=== PATIENT | female | born 1960 | race Caucasian/White ===

== ENCOUNTER → 2020-05-27 11:08 | Outpatient (CLI) | payer OTHER, SELFPAY ==
--- NOTE | ~2020-05-27 | XR_ITS ---
EXAMINATION: XR chest 2V 05/27/2020 11:33 INDICATION: Personal history of nicotine dependence. PROCEDURE: 2 view chest COMPARISON: No prior studies for comparison. FINDINGS: The lungs are clear. The cardiomediastinal silhouette is within normal limits. There are no pleural effusions. There is no pneumothorax suspected. IMPRESSION: 1: NO ACUTE CARDIOPULMONARY DISEASE. Reviewed, dictated and finalized at location A.
== END ==
PROVIDERS: PCP Family Medicine; Visit Provider Family Medicine
DX: Z87.891 Personal history of nicotine dependence (principal)
CPT/HCPCS: 71046

== ENCOUNTER 2023-04-05 17:33 | Emergency (ER) | payer OTHER, MEDICARE, SELFPAY ==
--- NOTE | 2023-04-05 17:37 | ED.FEMALEGU ---
HPI - Female Genitourinary General Chief complaint: Urogenital-Female Stated complaint: Crab treatment not working Time Seen by Provider: 04/05/23 17:37 Source: patient and RN notes reviewed History of Present Illness HPI Narrative: Patient is a 63-year-old female who presents to urgent care with complaints of possible lice. Patient has been being treated by Dr. Ospina since March 15 for lice. Patient was placed on permethrin and also went to a treatment facility in [place] who went through her hair with a fine tooth comb and stated they did not see any nits or evidence of lice. Patient states that she still believes she has it and has been seeing ?little brown bugs?. No other acute complaints. No acute distress noted. Patient aware of the plan of care. Some parts of this dictation were generated by voice recognition software and may contain typographical and/or grammatical inaccuracies. Related Data Home Medications Medication Instructions Recorded Confirmed ascorbic acid (vitamin C) 1,000 mg 1 gm PO DAILY 05/19/20 04/05/23 tablet aspirin 81 mg tablet,delayed 81 mg PO DAILY 05/19/20 04/05/23 release (Adult Low Dose Aspirin) cholecalciferol (vitamin D3) 125 125 mcg PO DAILY 05/19/20 04/05/23 mcg (5,000 unit) capsule magnesium 250 mg tablet 500 mg PO DAILY 05/19/20 04/05/23 multivitamin-ferrous 1 tablet PO DAILY 05/19/20 04/05/23 fumarate-folic acid 18 mg-400 mcg tablet (Centrum Women) omega-3 fatty acids 1,250 mg 1,250 mg PO DAILY 05/19/20 04/05/23 capsule Allergies Allergy/AdvReac Type Severity Reaction Status Date / Time No Known Allergies Allergy Verified 04/05/23 17:53 Review of Systems Review of Systems: CONSTITUTIONAL: Denies fever, chills, or sweats. EYES: Denies visual changes, redness, or discharge. ENT: Denies rhinorrhea, congestion, sore throat, or otalgia. CARDIOVASCULAR: Denies chest pain, palpitations, or edema. RESPIRATORY: Denies cough or dyspnea. GASTROINTESTINAL: Denies abdominal pain, nausea, vomiting, or diarrhea. GENITOURINARY: Denies dysuria or hematuria. SKIN: Reports of possibility of lice MUSCULOSKELETAL: Denies back pain, joint pain, or myalgia. NEUROLOGIC: Denies headache, numbness, or weakness. All other systems reviewed are negative, except as documented in HPI. [facility] Past Medical History Medical History (Updated 04/05/23 @ 18:10 by SEPIDEH Ho) HTN (hypertension) UTI (urinary tract infection) Dx on 28 October 2019 Surgical History Surgical History (Updated 05/15/22 @ 12:58 by Ignacio Ospina MD) H/O oophorectomy History of appendectomy History of cholecystectomy History of tonsillectomy Family History Family History (Reviewed 05/27/21 @ 15:44 by Adore Cervantes [facility]) Father Cancer Grandparent Cerebrovascular accident Grandparent Heart attack Social History Social History (Updated 05/27/21 @ 15:45 by Adore Cervantes [facility]) Smoking status: Never smoker Additional smoking assessment comments: Smoked when [age] y/o Alcohol intake: current Drinks per week: 10 Substance use type: does not use Gender identity (if verbalized by the patient): Female Comments At the time of my signature, I reviewed and agree with the nursing past medical, surgical, social, and family history. There is no relevant family history pertinent to the patient complaint. Exam Narrative: GENERAL: This is a well-nourished, well-developed patient, in no apparent distress. HEAD: normocephalic, atraumatic. EYES: PERRL. Sclera clear/white. Vision is grossly intact. EARS: External ears normal NOSE: External nose normal with no obvious nasal discharge, nares without redness, no rhinorrhea. THROAT: Mucous membranes moist NECK: Neck supple SKIN: No notable nits or active lice seen in the scalp. Warm, intact with no suspicious lesions or rash, good texture and turgor. NEURO: awake, alert, and oriented to person, place and time. There were
[2023-04-05 17:40] VITALS: BP 178/99; PULSE 70; RESP 20; TEMP 36.6; O2SAT 98
== END 2023-04-05 18:13 | disposition home or self-care (01) ==
PROVIDERS: Emergency Provider Nurse Practitioner Family; PCP Family Medicine
DX: B85.1 Pediculosis due to Pediculus humanus corporis (principal); I10 Essential (primary) hypertension; Z79.82 Long term (current) use of aspirin
CPT/HCPCS: 99213; G0463

== ENCOUNTER 2023-04-26 07:19 | Outpatient (CLI) | payer OTHER, MEDICARE, SELFPAY ==
[2023-04-26 19:29] LABS: Hemoglobin A1C 5.9 % (<5.7)
== END 2023-04-26 07:20 | disposition home or self-care (01) ==
LOC: ANHBWCLAB 07:23
PROVIDERS: PCP Family Medicine; Visit Provider Family Medicine
DX: R73.09 Other abnormal glucose (principal)
CPT/HCPCS: 36415; 83036

== ENCOUNTER 2023-10-01 07:59 | Outpatient (CLI) | payer OTHER, MEDICARE, SELFPAY ==
[2023-10-01 19:25] LABS: Basophils Absolute Auto 0.1 K/mm3 (0.0-0.1); Basophils Percent Auto 0.9 % (0.2-1.2); Eosinophils Absolute Auto 0.5 K/mm3 (0-0.3); Eosinophils Percent Auto 8.6 % (0-4.4); Hematocrit 42.1 % (37.0-47.0); Lymphocytes Absolute Auto 2.22 K/mm3 (0.9-3.2); Lymphocytes Percent Auto 41.7 % (18.3-44.2); Mean Corpuscular HGB Conc 33.3 g/dl (32-36); Mean Corpuscular Hemoglobin 32.1 pg (26-34); Mean Corpuscular Volume 96.6 fl (80-100); Mean Platelet Volume 9.9 fl (7.4-10.4); Monocytes Absolute Auto 0.5 K/mm3 (0.1-0.6); Monocytes Percent Auto 8.5 % (2.6-8.5); Neutrophils Absolute Auto 2.1 K/mm3 (1.3-6.7); Neutrophils Percent Auto 40.3 % (45.5-73.1); Platelet Count Result 255 k/mm3 (150-375); Red Blood Count 4.36 M/mm3 (4.2-5.4); Red Cell Distribution Width 13.6 % (11.5-14.5); White Blood Count 5.3 K/mm3 (4.5-10.0)
[2023-10-01 20:11] LABS: Alanine Aminotransferase 131 U/L (6-35); Albumin Level 4.6 g/dL (3.5-5.1); Alkaline Phosphatase 72 U/L (38-126); Anion Gap 9 mmol/L (8-16); Aspartate Amino Transferase 116 U/L (14-36); Bilirubin,Total 0.7 mg/dL (0.2-1.3); Blood Urea Nitrogen 15 mg/dL (7-17); Calcium 9.5 mg/dL (8.4-10.2); Carbon Dioxide 26 mmol/L (22-30); Chloride 103 mmol/L (98-107); Cholesterol 222 mg/dL (0-200); Estimated Glomerular Filt Rate 56; Glucose 119 mg/dL (65-110); HDL Direct 40 mg/dL; Potassium 3.7 mmol/L (3.4-5.0); Sodium 138 mmol/L (137-145); Triglycerides 265 mg/dL (<150)
[2023-10-01 20:21] LABS: LDL Cholesterol Direct 112 mg/dL
[2023-10-01 22:18] LABS: Hemoglobin A1C 5.9 % (<5.7)
== END 2023-10-01 08:00 | disposition home or self-care (01) ==
PROVIDERS: PCP Family Medicine; Visit Provider Family Medicine
DX: Z00.00 Encounter for general adult medical examination without abnormal findings (principal); R73.03 Prediabetes; I10 Essential (primary) hypertension; E66.9 Obesity, unspecified
CPT/HCPCS: 36415; 80053; 80061; 83036; 85025

== ENCOUNTER 2023-11-06 07:01 | Outpatient (CLI) | payer OTHER, MEDICARE, SELFPAY ==
[2023-11-06 20:04] LABS: Hepatitis B Surface Antigen Negative (Negative)
[2023-11-06 20:10] LABS: HAV RESULT Negative (Negative); Hepatitis B Core IgM Result Negative (Negative)
[2023-11-06 20:21] LABS: Hepatitis C Virus Antibody Negative (Negative)
== END 2023-11-06 07:02 | disposition home or self-care (01) ==
PROVIDERS: PCP Family Medicine; Visit Provider Family Medicine
DX: R74.01 Elevation of levels of liver transaminase levels (principal); R74.8 Abnormal levels of other serum enzymes
CPT/HCPCS: 36415; 80074

== ENCOUNTER → 2023-11-12 08:57 | Outpatient (CLI) | payer OTHER, SELFPAY ==
--- NOTE | ~2023-11-12 | US_ITS ---
EXAMINATION: US abdomen limited DATE: 11/12/2023 09:34 INDICATION: Elevated liver TECHNIQUE: Multiple grayscale and Doppler ultrasound images of the abdomen were obtained. COMPARISON: CT, 11/13/2019 FINDINGS: The head, body, and tail of the pancreas are normal. The liver demonstrates increased echog enicity, heterogenous echotexture, and decreased through transmission. No surface nodularity. Normal hepatopetal flow in the main portal vein. Changes of cholecystectomy are noted. The normal common bella e duct measures 8 mm. There is an approximately 6.6 cm mass of the right kidney upper pole demonstrat ing mixed sonographic features, consistent with the angiomyolipoma described on the comparison CT. IMPRESSION: 1. Diffuse hepatic steatosis. 2. 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 Reviewed, dictated and finalized at location B. OGRAPH PRINTER
== END ==
PROVIDERS: PCP Family Medicine; Visit Provider Family Medicine
DX: R74.8 Abnormal levels of other serum enzymes (principal); K76.0 Fatty (change of) liver, not elsewhere classified; D17.71 Benign lipomatous neoplasm of kidney
CPT/HCPCS: 76705

== ENCOUNTER 2024-01-09 09:27 | Emergency (ER) | payer OTHER, SELFPAY ==
[2024-01-09 09:51] VITALS: BP 122/87; PULSE 79; RESP 16; TEMP 36.9; O2SAT 100
--- NOTE | 2024-01-09 10:38 | ED.URI ---
HPI - URI/Sore Throat General Chief Complaint: Upper Respiratory Infection Stated Complaint: SORE THROAT/COUGH/SNEEZING Time Seen by Provider: 01/09/24 10:29 Source: patient and RN notes reviewed Mode of arrival: ambulatory Limitations: no limitations History of Present Illness HPI Narrative: Patient presents today complaining of 4 day history of cough, body aches, sneezing, congestion, sore throat, and fever up to 99.8. Denies shortness of breath or known sick contacts. She has tried airborne and NyQuil without relief. No history of asthma or COPD. Related Data Home Medications Medication Instructions Recorded Confirmed ascorbic acid (vitamin C) 1,000 mg 1 gm PO DAILY 05/19/20 01/09/24 tablet aspirin 81 mg tablet,delayed 81 mg PO DAILY 05/19/20 01/09/24 release (Adult Low Dose Aspirin) cholecalciferol (vitamin D3) 125 125 mcg PO DAILY 05/19/20 01/09/24 mcg (5,000 unit) capsule magnesium 250 mg tablet 500 mg PO DAILY 05/19/20 01/09/24 multivitamin-ferrous 1 tablet PO DAILY 05/19/20 01/09/24 fumarate-folic acid 18 mg-400 mcg tablet (Centrum Women) omega-3 fatty acids 1,250 mg 1,250 mg PO DAILY 05/19/20 01/09/24 capsule Allergies Allergy/AdvReac Type Severity Reaction Status Date / Time No Known Allergies Allergy Verified 01/09/24 10:07 Review of Systems Review of Systems: CONSTITUTIONAL: Denies chills, or sweats.+ body aches, fever EYES: Denies visual changes, redness, or discharge. ENT: Denies rhinorrhea, or otalgia.+ congestion, sore throat CARDIOVASCULAR: Denies chest pain, palpitations, or edema. RESPIRATORY: Denies dyspnea.+ cough GASTROINTESTINAL: Denies abdominal pain, nausea, vomiting, or diarrhea. GENITOURINARY: Denies dysuria or hematuria. SKIN: Denies rash, itching, or wounds. MUSCULOSKELETAL: Denies back pain, joint pain, or myalgia. NEUROLOGIC: Denies headache, numbness, tingling, or weakness. PSYCH: Denies depression or anxiety. [facility] Past Medical History Medical History Encounter for administration of vaccine HTN (hypertension) UTI (urinary tract infection) Dx on 28 October 2019 Surgical History Surgical History H/O oophorectomy History of appendectomy History of cholecystectomy History of tonsillectomy Family History Family History Father Cancer Grandparent Cerebrovascular accident Grandparent Heart attack Social History Social History Smoking status: Never smoker Additional smoking assessment comments: Smoked when [age] y/o Alcohol intake: current Drinks per week: 10 Substance use type: does not use Lack of Transportation: No Lack of Food: Never True Concerned About Future Housing: No Difficulty Paying Gas/Electric Bills: No Difficulty Paying for Meds: No Currently Unemployed: No Education: High School Diploma/GED Difficulty w/ Childcare or Family Care: No Gender identity (if verbalized by the patient): Female Comments At time of signature, I have reviewed and agree with nursing past medical, surgical, social and family history unless otherwise noted. Please see nursing chart for further information. There is no relevant family history pertinent to the presenting complaint Exam Narrative: GENERAL: Well-appearing, well-nourished, and in no acute distress. HEAD: Normocephalic, atraumatic. EYES: EOMI. No redness or drainage. Conjunctivae normal. ENT: Mucous membranes pink and moist. Nares congested. No rhinorrhea. TMs normal bilaterally. Throat normal. Uvula midline. NECK: Normal AROM. Supple. No lymphadenopathy. CHEST: No respiratory distress. Clear to auscultation. HEART: Regular rate and rhythm. No murmur appreciated. EXTREMITIES: Normal range of motion. No edema. S
== END 2024-01-09 11:07 | disposition home or self-care (01) ==
PROVIDERS: Emergency Provider Nurse Practitioner; PCP Family Medicine
DX: B34.9 Viral infection, unspecified (principal); Z20.822 Contact with and (suspected) exposure to COVID-19; I10 Essential (primary) hypertension; Z79.82 Long term (current) use of aspirin; Z87.891 Personal history of nicotine dependence
CPT/HCPCS: 87081; 87426; 87804; 87880; 99213; G0463

== ENCOUNTER 2024-05-19 06:47 | Outpatient (CLI) | payer OTHER, SELFPAY ==
[2024-05-19 18:55] LABS: Basophils Percent Auto 0.6 % (0.2-1.2); Eosinophils Absolute Auto 0.2 K/mm3 (0-0.3); Eosinophils Percent Auto 3.8 % (0-4.4); Hematocrit 42.3 % (37.0-47.0); Hemoglobin 13.6 g/dL (12.0-15.0); Lymphocytes Absolute Auto 2.14 K/mm3 (0.9-3.2); Mean Corpuscular HGB Conc 32.2 g/dl (32-36); Mean Corpuscular Hemoglobin 31.5 pg (26-34); Mean Corpuscular Volume 97.9 fl (80-100); Mean Platelet Volume 9.5 fl (7.4-10.4); Monocytes Absolute Auto 0.4 K/mm3 (0.1-0.6); Monocytes Percent Auto 8.6 % (2.6-8.5); Platelet Count Result 258 k/mm3 (150-375); Red Blood Count 4.32 M/mm3 (4.2-5.4); Red Cell Distribution Width 12.9 % (11.5-14.5); White Blood Count 4.8 K/mm3 (4.5-10.0)
[2024-05-19 19:48] LABS: Hemoglobin A1C 5.4 % (<5.7)
[2024-05-19 20:17] LABS: Alanine Aminotransferase 37 U/L (6-35); Albumin Level 4.5 g/dL (3.5-5.1); Alkaline Phosphatase 80 U/L (38-126); Anion Gap 8 mmol/L (4-12); Aspartate Amino Transferase 58 U/L (14-36); Bilirubin,Total 0.6 mg/dL (0.2-1.3); Blood Urea Nitrogen 21 mg/dL (7-17); Calcium 9.4 mg/dL (8.4-10.2); Carbon Dioxide 30 mmol/L (22-30); Chloride 102 mmol/L (98-107); Cholesterol 193 mg/dL (0-200); Estimated Glomerular Filt Rate 45; Glucose 88 mg/dL (65-110); HDL Direct 36 mg/dL; Potassium 3.6 mmol/L (3.4-5.0); Sodium 140 mmol/L (137-145); Triglycerides 201 mg/dL (<150)
[2024-05-19 20:43] LABS: LDL Cholesterol Direct 109 mg/dL
[2024-05-19 21:25] LABS: Folic Acid > 20.0 ng/mL (2.76->20)
== END 2024-05-19 06:48 | disposition home or self-care (01) ==
PROVIDERS: PCP Family Medicine
DX: E56.9 Vitamin deficiency, unspecified (principal); E34.9 Endocrine disorder, unspecified; E66.3 Overweight
CPT/HCPCS: 36415; 80053; 80061; 82607; 82746; 83036; 84443; 85025

== ENCOUNTER 2024-07-17 06:38 | Outpatient (CLI) | payer OTHER, SELFPAY ==
[2024-07-17 19:50] LABS: Alanine Aminotransferase 29 U/L (6-35); Albumin Level 4.5 g/dL (3.5-5.1); Alkaline Phosphatase 70 U/L (38-126); Anion Gap 10 mmol/L (4-12); Aspartate Amino Transferase 80 U/L (14-36); Bilirubin,Total 0.5 mg/dL (0.2-1.3); Blood Urea Nitrogen 26 mg/dL (7-17); Calcium 9.4 mg/dL (8.4-10.2); Carbon Dioxide 27 mmol/L (22-30); Chloride 99 mmol/L (98-107); Estimated Glomerular Filt Rate 55; Glucose 98 mg/dL (65-110); Potassium 3.9 mmol/L (3.4-5.0); Sodium 136 mmol/L (137-145)
[2024-07-17 20:41] LABS: Hemoglobin A1C 5.7 % (<5.7)
[2024-07-23 13:24] LABS: ALT 21 U/L (6-29); Alpha-2-Macroglobulin 199 mg/dL (106-279); Apolipoprotein A1 135 mg/dL (101-198); Fibrosis Score 0.23; Fibrosis Stage F0-F1; GGT 39 U/L (3-65); Haptoglobin 119 mg/dL (43-212); Necroinflammat Act Grade A0; Reference ID 5077341; Total Bilirubin 0.3 mg/dL (0.2-1.2)
== END 2024-07-17 06:39 | disposition home or self-care (01) ==
LOC: ANHBWCLAB 06:39
PROVIDERS: PCP Family Medicine; Visit Provider Family Medicine
DX: E66.9 Obesity, unspecified (principal); R73.03 Prediabetes; R73.9 Hyperglycemia, unspecified; R94.4 Abnormal results of kidney function studies; R74.8 Abnormal levels of other serum enzymes
CPT/HCPCS: 36415; 80048; 80076; 81596; 83036

== ENCOUNTER 2024-10-09 12:54 | Outpatient (CLI) | payer OTHER, SELFPAY ==
--- NOTE | ~2024-10-09 | DEXA_ITS ---
Bone Density Report Name: EUN HOANG Age: 64 Sex: Female Ethnicity: White Date of : 1960 Indication: postmenopausal; screening for osteoporosis; parental hip fracture; Referring Provider: BETH FOSTER Study: Bone densitometry was performed. Exam Date: October 09, 2024 Accession number: [id number] Bone Density: Region BMD T-score Z-score Classification AP Spine(L1-L4) 1.105 0.5 2.4 Normal Femoral Neck (Left) 0.755 -0.8 0.8 Normal Total Hip (Left) 1.015 0.6 1.9 Normal Femoral Neck (Right) 0.618 -2.1 -0.5 Osteopenia Total Hip (Right) 0.913 -0.2 1.1 Normal Total Hip Mean 0.964 0.2 1.5 Normal World Health Organization criteria for BMD impression classify patients as: Normal (T-score at or above -1.0), Osteopenia (T-score between -1.0 and -2.5), or Osteoporosis (T-score at or below -2.5). 10-year Fracture Risk(1): Major Osteoporotic Fracture 19% Hip Fracture 2.3% Reported Risk Factors: [place] (), Neck BMD=0.618, BMI=30.6, parental fracture (1) FRAX(R) Version 3.08. Fracture probability calculated for an untreated patient. Fracture probability may be lower if the patient has received treatment. Clinical Information Provided by Patient: Parent has had a hip fracture Has used the following medications: Vitamin D Patient maximum height was 64 Menopause Age: 53 Onset of menses at age 13 Number of children 4 Impression: The patient has low bone mass, based on the Right Femoral Neck T-score. The patient has an estimated ten-year risk of hip fracture of 2.3% and an estimated ten-year risk of major fracture of 19%, based on the WHO FRAX algorithm. The patient has risk factors, including: parental hip fracture. Discussion: BONE DENSITY IS LOW AT ONE OR MORE SKELETAL SITES. This patient's lowest T-score is low at one or more skeletal sites. It meets the World Health Organization's (WHO) criteria for ?low bone mass? (T-score between -1.0 and -2.5). The patient's 10-year risk of fracture as calculated by FRAX is less than the threshold where pharmacological therapy is recommended by the National Osteoporosis Foundation (NOF). However, all treatment decisions require clinical judgment and consideration of individual patient factors, including patient preferences, comorbidities, previous drug use, risk factors not captured in the FRAX model (e.g., frailty, falls, vitamin D deficiency, increased bone turnover, interval significant decline in bone density) and possible under or overestimation of fracture risk by FRAX. The patient should follow a healthful lifestyle (good nutrition with adequate calcium and vitamin D, and appropriate weight-bearing exercise). Follow-Up: Consider repeating this study in 2 to 3 years to reassess this patient's status, or sooner if there is some new clinical indication. Reported by: BRITTANY on 10/09/2024 1:41:00 PM. Reviewed, dictated and finalized at location A. [facility]
== END 2024-10-09 12:55 | disposition home or self-care (01) ==
PROVIDERS: PCP Family Medicine; Visit Provider Family Medicine
DX: M85.851 Other specified disorders of bone density and structure, right thigh (principal); Z78.0 Asymptomatic menopausal state; Z82.62 Family history of osteoporosis
CPT/HCPCS: 77080

== ENCOUNTER 2024-10-20 07:25 | Outpatient (CLI) | payer OTHER, SELFPAY ==
[2024-10-20 18:57] LABS: Hematocrit 43.5 % (37.0-47.0); Hemoglobin 14.4 g/dL (12.0-15.0); Mean Corpuscular HGB Conc 33.1 g/dl (32-36); Mean Corpuscular Hemoglobin 30.6 pg (26-34); Mean Corpuscular Volume 92.4 fl (80-100); Mean Platelet Volume 9.5 fl (7.4-10.4); Platelet Count Result 286 k/mm3 (150-375); Red Blood Count 4.71 M/mm3 (4.2-5.4); White Blood Count 5.4 K/mm3 (4.5-10.0)
[2024-10-20 19:05] LABS: CRP < 0.5 mg/dL (<1.0)
[2024-10-20 19:11] LABS: Alanine Aminotransferase 30 U/L (6-35); Albumin Level 4.6 g/dL (3.5-5.1); Alkaline Phosphatase 74 U/L (38-126); Anion Gap 5 mmol/L (4-12); Aspartate Amino Transferase 54 U/L (14-36); Bilirubin,Total 0.7 mg/dL (0.2-1.3); Blood Urea Nitrogen 24 mg/dL (7-17); Calcium 9.8 mg/dL (8.4-10.2); Carbon Dioxide 33 mmol/L (22-30); Chloride 99 mmol/L (98-107); Estimated Glomerular Filt Rate 55; Glucose 90 mg/dL (65-110); Potassium 3.9 mmol/L (3.4-5.0); Sodium 137 mmol/L (137-145)
[2024-10-20 19:26] LABS: Erythrocyte Sedimentation Rate 16 mm/hr (0-20)
[2024-10-20 19:36] LABS: Hemoglobin A1C 5.5 % (<5.7)
[2024-10-21 17:13] LABS: ANA Cascade Screen NEGATIVE (NEGATIVE)
== END 2024-10-20 07:26 | disposition home or self-care (01) ==
LOC: ANHBWCLAB 07:26
PROVIDERS: PCP Family Medicine; Visit Provider Family Medicine
DX: R94.4 Abnormal results of kidney function studies (principal); Z00.00 Encounter for general adult medical examination without abnormal findings; R73.9 Hyperglycemia, unspecified; R74.8 Abnormal levels of other serum enzymes; R73.03 Prediabetes; E66.9 Obesity, unspecified; I10 Essential (primary) hypertension; M25.511 Pain in right shoulder; M25.512 Pain in left shoulder; M79.10 Myalgia, unspecified site
CPT/HCPCS: 36415; 80053; 83036; 85027; 85652; 86038; 86140; 86225; 86235; 86364

== ENCOUNTER 2024-10-27 15:39 | Outpatient (CLI) | payer OTHER, SELFPAY ==
--- NOTE | ~2024-10-27 | XR_ITS ---
Left Shoulder Technique: AP and scapular Y views were obtained. Clinical History: Pain Findings: No fracture or dislocation is seen. Osseous alignment is anatomic. The glenohumeral and acr omioclavicular joints demonstrate mild degenerative change. Soft tissues are unremarkable. Impression: Mild degenerative changes, as above. Reviewed, dictated and finalized at location . L STAMPER Impression: Mild degenerative changes, as above.
--- NOTE | ~2024-10-27 | XR_ITS ---
Right Shoulder Technique: AP and scapular Y views were obtained. Clinical History: Pain Findings: No fracture or dislocation is seen. Osseous alignment is anatomic. The glenohumeral and acr omioclavicular joints demonstrate moderate degenerative change. Probable loose bodies within the benigno ps tendon sheath. Impression: Moderate degenerative changes, as above. Probable loose bodies in the biceps tendon sheath. Reviewed, dictated and finalized at location . SERVICING SPECIALIST Impression: Moderate degenerative changes, as above. Probable loose bodies in the biceps tendon sheath.
== END 2024-10-27 15:40 | disposition home or self-care (01) ==
LOC: ANHBWCIMG 15:40
PROVIDERS: PCP Family Medicine; Visit Provider Family Medicine
DX: M19.012 Primary osteoarthritis, left shoulder (principal); M19.011 Primary osteoarthritis, right shoulder; M79.10 Myalgia, unspecified site; I10 Essential (primary) hypertension
CPT/HCPCS: 73030

== ENCOUNTER 2024-12-09 12:07 | Outpatient (CLI) | payer OTHER, SELFPAY ==
--- NOTE | ~2024-12-09 | MM_ITS ---
EXAMINATION: MM screening edi BI w meagan HISTORY: Screening mammogram TECHNIQUE: Craniocaudal and mediolateral oblique 3-D tomosynthesis images were obtained and synthetic 2-D images were generated. CAD analysis was submitted and interpreted. COMPARISON: No prior mammogram is available for comparison at this institution. BREAST PARENCHYMAL COMPOSITION:Not Dense. There are scattered areas of fibroglandular density. FINDINGS: There are several ovoid mass is at the upper, outer left breast, largest measuring 12 mm. N o mass lesion or distortion seen in the right breast. No suspicious microcalcification either breast. IMPRESSION: Upper, outer left breast masses. Spot compression views and ultrasound are recommended for further e valuation. BI-RADS Category 0: Incomplete: Needs additional imaging evaluation. Reviewed, dictated and finalized at [facility]. R SERVICE WORKER SPRING IMPRESSION: Upper, outer left breast masses. Spot compression views and ultrasound are rec ommended for further evaluation. BI-RADS Category 0: Incomplete: Needs additional imaging evaluation.
== END 2024-12-09 12:08 | disposition home or self-care (01) ==
PROVIDERS: PCP Family Medicine; Visit Provider Family Medicine
DX: Z12.31 Encounter for screening mammogram for malignant neoplasm of breast (principal); R92.8 Other abnormal and inconclusive findings on diagnostic imaging of breast
CPT/HCPCS: 77063; 77067

== ENCOUNTER 2024-12-31 09:54 | Outpatient (CLI) | payer OTHER, SELFPAY ==
--- NOTE | ~2024-12-31 | MMUS_ITS ---
EXAMINATION: MM diagnostic edi LT w meagan, US breast LT complete HISTORY: Palpable left breast lump TECHNIQUE: Additional 3-D tomosynthesis images of the breasts were performed and synthetic 2-D images were generated. CAD analysis was submitted and interpreted. High resolution complete left breast ult rasound was performed. COMPARISON: 12/09/2024 BREAST PARENCHYMAL COMPOSITION: Dense: The breasts are heterogeneously dense, which may obscure small masses FINDINGS: MAMMOGRAPHIC FINDINGS: There are multiple masses of the left breast which are partially obscured by fibroglandular tissue. T he largest mass measures approximately 1.3 cm in the upper outer quadrant of the left breast, middle third. There are no suspicious calcifications or architectural distortion. ULTRASOUND: Complete US of all 4 quadrants of the left breast/s and retroareolar region was reviewed. At 12:00, 1 cm from the nipple there is a 4 mm cyst. At 1:00, 2 cm from the nipple there is a 1.6 cm cyst, likel y corresponding to the dominant mass seen on mammogram. At 1:00, 3 cm from the nipple there is an 8 m m cyst. At 1:00, 3 cm from the nipple there is an round hypoechoic mass without posterior features or internal vascularity measuring 4 mm. At 3:00, 3 cm from the nipple there is an oval hypoechoic mass with internal echoes, no internal vascularity and no posterior features measuring 6 mm. At 7:00, 6 cm from the nipple there is 3 mm cyst. IMPRESSION: 1. Probable benign left breast masses. 2. Recommend 6 month follow-up diagnostic left mammogram and Limited left breast ultrasound. BI-RADS category 3, probably benign findings. Reviewed, dictated and finalized at location B. RRAL AND INFORMATION AIDE IMPRESSION: 1. Probable benign left breast masses. 2. Recommend 6 month follow-up diagnostic left mammogram and Limited left breas t ultrasound. BI-RADS category 3, probably benign findings.
== END 2024-12-31 09:55 | disposition home or self-care (01) ==
PROVIDERS: PCP Family Medicine; Visit Provider Family Medicine
DX: N63.20 Unspecified lump in the left breast, unspecified quadrant (principal)
CPT/HCPCS: 76641; 77061; 77065; G0279

== ENCOUNTER 2025-04-23 11:07 | Outpatient (CLI) | payer OTHER, SELFPAY ==
--- NOTE | ~2025-04-23 | US_ITS ---
Procedure: Duplex Doppler examination of the bilateral carotids. Indication: Family history of ischemic heart disease Technique: Real time, color-flow and pulse wave Doppler examination of the bilateral carotids was performed. Findings: Lowe scale ultrasonography of the right neck demonstrated no significant plaque. There was demonstrat ion of normal color-flow and Doppler waveforms within the right common, internal and external carotid arteries. The peak systolic velocities in the right common, internal and external carotid arteries w ere demonstrated to be 89 cm/sec, 74 cm/sec and 55 cm/sec respectively. The right ICA/CCA ratio was 0 .8.The proximal right internal carotid artery demonstrates 0% stenosis relative to the normal distal artery lumen diameter. Lowe scale sonography of the left neck demonstrated no significant plaque. There was demonstration of normal color-flow and wave forms within the left common, internal and external carotid arteries. The peak systolic velocities in the left common, internal and external carotid arteries were demonstrate d to be 84cm/sec, 67 cm/sec and 39 cm/sec respectively. The left ICA/CCA ratio was 0.8. The proximal left internal carotid artery demonstrates 0% stenosis relative to the normal distal artery lumen diam eter. There was antegrade flow demonstrated in the bilateral vertebral arteries. Impression: No hemodynamically significant stenosis of the bilateral internal carotid arteries. Antegrade flow in the bilateral vertebral arteries. Note: The methodology used is an indirect measurement validated against a direct method (such as the NASCET criteria) that compares diameters at the stenosis to the distal ICA. Reviewed, dictated and finalized at [facility]. Impression: No hemodynamically significant stenosis of the bilateral internal carotid arter ies. Antegrade flow in the bilateral vertebral arteries. Note: The methodology used is an indirect measurement validated against a direct meth od (such as the NASCET criteria) that compares diameters at the stenosis to the distal ICA.
--- OUTSIDE RECORDS SUMMARY | 2025-04-23 11:28 | XMS_ITS ---
Author Organization [facility] Address [address] [place] [id number] Care Team Providers Care Assembler Piano Name Role Phone NiloKindra Primary Care Provider [phone] Encounters Encounter Location Date Provider Diagnosis [address] [id number] 10/30/2024 Kindra Corcoran Dysplasia of cervix uteri, unspecified N87.9 and High grade squamous intraepithelial lesion on cytologic smear of cervix (HGSIL) R87.613 Assessments Encounter Date Diagnosis (ICD Code) Assessment Notes Treatment Notes Treatment Clinical Notes Section Notes 10/30/2024 Dysplasia of cervix uteri, unspecified (ICD-10 - N87.9) 10/30/2024 High grade squamous intraepithelial lesion on cytologic smear of cervix (HGSIL) (ICD-10 - R87.613) Plan Of Treatment No Information Progress Notes * Brannon ADAMSKeshiaOB:[birth year] (65 yo F)Acc No.[id number]:10/30/2024 Progress Note Patient: Kelsie Satrks Provider: Cam Corcoran M.D. :1960 A ge:64 Y S ex:Female Date:10/30/2024 Phone: [id number] Assessment: * Assessment: 1. D ysplasia of cervix uteri, unspecified - N87.9 2 . H igh grade squamous intraepithelial lesion on cytologic smear of cervix (HGSIL) - R87.613 * Electronic signature of Tiki Corcoran on 04/23/2025 at 11:28 AM CDT Sign off status: Pending * Provider: Cam Corcoran M.D. Date: 12/31/2023 Generated for Courtney paz/Vashti/Micahitting on: 0 04/23/2025 11:28 AM CDT
--- OUTSIDE RECORDS SUMMARY | 2025-04-23 11:28 | XMS_ITS ---
Author Organization [facility] Address [address], [place] [id number] Care Team Providers Care Nutritional Yeast Supervisor Name Role Phone Nilo Kindra Primary Care Provider Migration, Provider Unavailable Unavailable REASON FOR VISIT EMR-Angel Encounters Encounter Location Date Provider Diagnosis [facility] [address], [place] [id number] 02/21/2025 Prov ider Migration Plan Of Treatment No Information Progress Notes * Keara ADAMSOB:[birth year] (65 yo F)Acc No.[id number]:02/21/2025 Patient: Kelsie BROWN :1960 A ge:65 Y S ex:Female Phone: Address:[facility] [address], [place], [address] Subjective: * Chief Complaints: * E MR-Angel * * Date:
--- OUTSIDE RECORDS SUMMARY | 2025-04-23 11:28 | XMS_ITS | Clinical Summary ---
Author Organization [facility] Address [address] [place] [address] Phone Care Team Providers Care Information Technology Account Manager Name Role Phone Tracy Nelson MD Primary Care Provider [phone] Allergies No known active allergies Medications losartan (COZAAR) 100 mg tablet Take 100 mg by mouth. Active cholecalciferol , Vitamin D3, (VITAMIN D3) 1,000 unit Capsule Take by mouth daily. Pt unsure of dosage Active multivitamin (DAILY-ANNA) tablet Take 1 Tablet by mouth daily. Active Fish Oil-Mohawk-3 Fatty Acids 300-500 mg Capsule Take by mouth. PT UNSURE OF DOSAGE Active oxyCODONE-aceta minophen (PERCOCET) 5-325 mg tabletIndicatio ns:Retroperiton eal hemorrhage Take 1 Tablet by mouth every 4 hours as needed for moderate pain. Max Daily Amount: 6 Tablets 10 Tablet 11/05/2019 Active aspirin (ECOTRIN EC) 81 mg Tablet, Delayed Release (E.C.) Take 81 mg by mouth daily. Active hydroCHLOROthia zide (HYDRODIURIL) 12.5 mg tablet Take 25 mg by mouth daily. 02/03/2023 Active Active Problems Problem Noted Date Diagnosed Date Chest pain, rule out acute myocardial infarction 04/06/2023 Angiolipoma of right kidney 11/04/2019 Nausea & vomiting 11/04/2019 Benign hypertension 11/03/2019 Hyperlipidemia 11/03/2019 Resolved Problems Problem Noted Date Diagnosed Date Resolved Date Acute blood loss anemia 11/04/201910/28 Hematuria 11/04/2019 11/25/2019 Retroperitoneal hemorrhage 11/03/2019 1 Renal mass, right 11/03/2019 11/25/2019 Family History Medical History Relation Name Comments Healthy Brother Prostate Cancer Father Healthy Mother Healthy Sister Relation Name Status Comments Brother Father Mother Alive Sister Social History Tobacco Use Types Packs/Day Years Used Date Smoking Tobacco: Former Cigarettes 1 10 1 12/27/1978 - 10/26/1989 Smokeless Tobacco: Never Tobacco Cessation:Counseling Given: Yes Alcohol Use Standard Drinks/Week Comments Yes 1 (1 standard drink = 0.6 oz pur e alcohol) Glass of wine per night Feeling Safe Answer Date Recorded Within the last year, have y ou been afraid of your partner or ex-partner? Patient declined 11/03/2019 Within the last year, have y ou been humiliated or emotionally abused in other ways by your partner or ex-partner? Patient declined 11/03/2019 Within the last year, have y ou been kicked, hit, slapped, or otherwise physically hurt by your partner or ex-partner? Patient declined 11/03/2019 Within the last year, have y ou been raped or forced to have any kind of sexual activity by your partner or ex-partner? Patient declined 11/03/2019 Social Connections Answer Date Recorded In a typical week, how many times do you talk on the phone with family, friends, or neighbors? Patient declined 11/03/2019 How often do you get togethe r with friends or relatives? Patient declined 11/03/2019 How often do you attend worship or zoroastrianism serv ices? Patient declined 11/03/2019 Do you belong to any clubs o r organizations such as worship groups, unions, fraternal or athletic groups, or school groups? Patient declined 11/03/2019 How often do you attend meet ings of the clubs or organizations you belong to? Patient declined 11/03/2019 Are you , , di vorced, , never , or living with a partner? Patient declined 11/03/2019 Financial Resource Strain Answer Date R ecorded How hard is it for you to pa y for the very basics like food, housing, medical care, and heating? Patient declined 11/03/2019 Food Insecurity Answer Date Recorded Within the past 12 months, y ou worried that your food would run out before you got the money to buy more. Patient declined Within the past 12 months, t he food you bought just didn't last and you didn't have money to get more. Patient declined 07/2019 Transportation Needs Answer Date Record ed In the past 12 months, has l ack of transportation kept you from medical appointments or from getting medications? Patient declined 11/03/2019 In the past 12 months, has l ack of transportation kept you from meetings, work, or from getting things needed for daily living? Patient declined 11/03/2019 Feeling Safe Answer Date Recorded Are you in a relationship wi th someone who hurts you emotionally and/or physically? 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 Gender Identity Not on file Sexual Orientation Not on file Last Filed Vital Signs Vital Sign Reading Time Taken Comments Blood Pressure 169/100 04/07/2023 11:03 AM CDT Pulse 78 04/07/2023 11:03 AM CDT Temperature 36.7 C (98 F) 04/07/2023 11:03 AM CDT Respiratory Rate 16 04/07/2023 11:03 AM CDT Oxygen Saturation 100% 04/07/2023 11:03 AM CDT Inhaled Oxygen Concentration - - Weight 86.2 kg (190 lb) 04/06/2023 8:06 AM CDT Height 162.6 cm (5' 4) 04/06/2023 8:06 AM CDT Body Mass Index 32.61 04/06/2023 8:06 AM CDT Plan of Treatment Health Maintenance Due Date Last Done Comments BREAST CANCER SCREENING 1998 COLORECTAL SCREENING 2003 Colorectal Cancer Screening 2003 FIT-DNA Q 3 years 2003 FIT/FOBT Q 1 year 2003 Flex Sig/CT Colonography Q 5 years 2003 PNEUMOCOCCAL VACCINE 50+ YEARS (1 of 1 - PCV) 02/07/20 08 ZOSTER VACCINE (1 of 2) 02/07/2008 DTAP/TDAP/TD VACCINES (1 - Tdap) 10/24/2016 10/23/20 16 OSTEOPOROSIS SCREENING 2023 INFLUENZA VACCINE (#1) 2024 RSV VACCINE (60+ or ) (1 - 1-dose 75+ series) 2033 Insurance RX [employer] (INTERNAL) [facility] [employer] [place] [id number] MEDICARE PART A AND B Advance Directives For more information, please contact: [phone] * Default Full Code - Needs Discussion (Latest Code Status on File) Date Activated Date Inactivated Comments 04/07/2023 2:37 AM 04/07/2023 1:09 PM * Full Code Date Activated Date Inactivated Comments 11/03/2019 2:48 PM 11/05/2019 9:27 PM Care Teams Information Technology Account Manager Relationship Specialty Start Date End Date Tracy Nelson MD PCP - General Family Practice 10/21/18
--- OUTSIDE RECORDS SUMMARY | 2025-04-23 11:28 | XMS_ITS | Clinical Summary ---
Author Organization [facility] Address [address] [place] [address] Care Team Providers Care Billiard Player Name Role Phone Unavailable Primary Care Provider Unavailabl e Source Comments [facility],non-owned Affiliates and Associated Physician Practices is amultiple site organization consisting of ambulatory clinics and hospital sitesin [place], [place], [place] and [place]. This disclosure is being madepursuant to the Care Everywhere program and may not contain all information available regarding this patient. Last updated 18.[facility] Allergies No known active allergies Medications * Be aware that medications may not be up to date on this document. Alwaysverify current medications with the patient. 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 Gender Identity Not on file Sexual Orientation Not on file Last Filed Vital Signs Vital Sign Reading Time Taken Comments Blood Pressure 124/80 11/28/2019 12:42 PM AFFILIATE MARKETING SPECIALIST Pulse 67 11/28/2019 12:42 PM AFFILIATE MARKETING SPECIALIST Temperature 36.6 C (97.9 F) 11/28/2019 12:42 PM AFFILIATE MARKETING SPECIALIST Respiratory Rate 16 11/28/2019 12:42 PM AFFILIATE MARKETING SPECIALIST Oxygen Saturation 97% 11/28/2019 12:42 PM AFFILIATE MARKETING SPECIALIST Inhaled Oxygen Concentration - - Weight 77.1 kg (170 lb) 11/28/2019 12:42 PM AFFILIATE MARKETING SPECIALIST Height 162.6 cm (5' 4) 11/28/2019 12:42 PM AFFILIATE MARKETING SPECIALIST Body Mass Index 29.18 11/28/2019 12:42 PM AFFILIATE MARKETING SPECIALIST Plan of Treatment Health Maintenance Due Date Last Done Comments BONE DENSITY TESTING 1960 COLOGUARD (AGES 45-75) - COL ON CA SCREENING 1958 COLON MONITORING 1958 COLONOSCOPY - COLON CA SCREENING 1958 CT COLONOGRAPHY - COLON CA SCREENING 1958 Colorectal Cancer Screening 1958 FIT - COLON CA SCREENING 1958 FLEX SIG - COLON CA SCREENING 1958 LIPID TESTING 1958 MAMMOGRAM 1958 HEPATITIS C SCREENING 02/02/1976 DTAP/TDAP/TD VACCINES (1 - Tdap) 1977 PNEUMOCOCCAL VACCINE 50+ (1 of 1 - PCV) 02/07/2008 ZOSTER VACCINE (1 of 2) 02/07/2008 SCREENING FOR DIABETES 10/28/2019 COVID-19 VACCINE ( - 2023-2 5 season) 2024 DEPRESSION SCREENING 11/26/2024 INFLUENZA VACCINE (Season Ended) 2025 Respiratory Syncytial Virus (RSV) Vaccine Pt: or over 60 yrs (1 - 1-dose 75+ series) 2033 HEPATITIS B VACCINE Aged Out No longe r eligible based on patient's age to complete this topic HIB VACCINE Aged Out No longer eligi ble based on patient's age to complete this topic HPV VACCINE Aged Out No longer eligi ble based on patient's age to complete this topic MENINGOCOCCAL (Group B) VACC INE SHARED DECISION-MAKING Aged Out No longer eligibl e based on patient's age to complete this topic MENINGOCOCCAL GROUPS A/C/Y/W VACCINE Aged Out No longer eligible b ased on patient's age to complete this topic Insurance [employer]
--- OUTSIDE RECORDS SUMMARY | 2025-04-23 11:29 | XMS_ITS | Clinical Summary ---
Author Organization [facility] Address [address] [place] [address] Care Team Providers Care Carbonizer Name Role Phone Ignacio Ospina MD Primary Care Provider [phone] Allergies No known active allergies Medications losartan (COZAAR) 100 mg tablet Take 100 mg by mouth daily Active ibuprofen (ADVIL,MOTRIN) 200 mg tab/cap Take 400 mg by mouth every 6 (six) hours as needed for pain Active HYDROcodone-rehan taminophen (NORCO) 5-325 mg per tabletIndicatio ns:Pain Take 1 tablet by mouth every 6 (six) hours as needed for pain 20 tablet 2 Active Additional Information Patient not taking.Reported on 09/15/2022 hydroCHLOROthia zide (HYDRODIURIL) 12.5 mg tablet Take 12.5 mg by mouth daily 2 Active Active Problems Problem Noted Date Diagnosed Date Closed fracture of right distal radius 2 Overview (05/26/2022): Added automatically from request for surgery [id number] Angiolipoma of right kidney 11/04/2019 Nausea & vomiting 11/04/2019 Benign hypertension 11/03/2019 Hyperlipidemia 11/03/2019 Immunizations Immunization Administration Dates Next Due TD Preservative Free 10/23/2016 Surgical History Surgery Date Site/Laterality Comments APPENDECTOMY CHOLECYSTECTOMY HYSTERECTOMY FOOT SURGERY TONSILLECTOMY Medical History Medical History Date Comments Hypertension Motion sickness Family History Medical History Relation Name Comments Prostate cancer Father Cancer, pros min; Stroke Father Stroke; Relation Name Status Comments Father Social History Tobacco Use Types Packs/Day Years Used Date Smoking Tobacco: Former Smokeless Tobacco: Never Alcohol Use Standard Drinks/Week Comments Yes 0 (1 standard drink = 0.6 oz pur e alcohol) AUDIT-C Answer Date Recorded Q1: How often do you have a drink containing alcohol? 4 or more times a week 05/30/2022 Q2: How many drinks containi ng alcohol do you have on a typical day when you are drinking? 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 Gender Identity Not on file Sexual Orientation Not on file Obstetrics History Last Filed Vital Signs Vital Sign Reading Time Taken Comments Blood Pressure 140/90 05/30/2022 5:26 PM CDT Pulse 88 05/30/2022 5:26 PM CDT Temperature 36.2 C (97.2 F) 05/30/2022 5:26 PM CDT Respiratory Rate 16 05/30/2022 5:26 PM CDT Oxygen Saturation 100% 05/30/2022 5:26 PM CDT Inhaled Oxygen Concentration - - Weight 84.9 kg (187 lb 2.7 oz) 05/30/2022 12:25 PM CDT Height 162.6 cm (5' 4) 05/30/2022 12:25 PM CDT Body Mass Index 32.13 05/30/2022 12:25 PM CDT Plan of Treatment Health Maintenance Due Date Last Done Comments Breast Cancer Screening-Mammogram 1960 Colon Cancer Screening-Colonoscopy 1958 Depression Screening 1958 Fall Risk Assessment 1958 Hepatitis C Screening 1958 Osteoporosis Screening-Bone Density Scan 1958 Hepatitis B Screening 02/07/1976 Pneumococcal vaccine 65+ (1 of 1 - PCV) 02/07/2008 Zoster Vaccine (1 of 2) 02/07/2008 Well Visit 65+ 2023 Covid-19 Vaccine (4 - 2023-2 5 season) 2024 11/25/2021, 03/06/2021, 02/13/2021 Influenza Vaccine (Season Ended) 2025 09/21/2021, 09/06/2020, 08/24/2019, Additional history exists DTaP/Tdap/Td Vaccine (2 - Td or Tdap) 05/15/2032 05/15/2022, 10/23/2016 Medical Devices Implanted Type Area Student Life Coordinator Device Identifier Shelf Expiration Date Model / Serial / Lot [employer] 3 Hole Anatomic Graft Window Radius Right Wrist Volar Narrow [id number] - Sn/A - [id number] Implanted:Qty: 1 on 05/30/2022 by Isaías Perez MD at [facility] Right: Wrist [employer] [id number] / N/A / DRP 10 [employer] Screw Kreulock Compression Titanium 2.4x20mm [id number] - Sn/A - [id number] Implanted:Qty: 3 on 05/30/2022 by Isaías Perez MD at [facility] Right: Wrist [employer] [id number] 0 / N/A / [id number], [id number] [employer] Screw Kreulock Compression Titanium 2.4x18mm [id number] - Sn/A - [id number] Implanted:Qty: 3 on 05/30/2022 by Isaías Perez MD at [facility] Right: Wrist [employer] [id number] 8 / N/A / [id number] [employer] Screw Kreulock Compression Titanium 3.5x14mm [id number] - Sn/A - [id number] Implanted:Qty: 1 on 05/30/2022 by Isaías Perez MD at [facility] Right: Wrist [employer] [id number] / N/A / [id number] [employer] 3.5mm 10mm Low Profile Lock Screw Bone Titanium [id number]-10 - Sn/A - [id number] Implanted:Qty: 1 on 05/30/2022 by Isaías Perez MD at [facility] Right: Wrist [employer] [id number]-[id number]-10 / N/A / [id number] [employer] 2.4mm 18mm Variable Angle Lock Smooth Radius Cortical Distal [id number] - Sn/A - [id number] Implanted:Qty: 1 on 05/30/2022 by Isaías Perez MD at [facility] Right: Wrist [employer] [id number] 8 / N/A / [id number] Explanted Type Area Student Life Coordinator Device Identifier Shelf Expiration Date Model / Serial / Lot [employer] Screw Kreulock Compression Titanium 2.4x26mm [id number] - Sn/A - [id number] Explanted:Qty: 1 on 05/30/2022 at [facility] Right: Wrist [employer] [id number]- 26 / N/A / [id number] Insurance CHOICE PLUS CHOICE PLUS [facility] CHOICE PLUS Member Subscriber Plan / Payer (Ef fective 2021-Present) Name:Kelsie Adams Relation to Subscriber:Spouse Name:ETHAN ADAMS Date of :1958 Address: [address] [place] [address] Payer ID:[id number] (NAIC) Type:[facility] [facility] HMO/PPO Address: [place] [phone] Care Teams Carbonizer Relationship Specialty Start Date End Date Ignacio Ospina MD PCP - General 05/19/22
--- OUTSIDE RECORDS SUMMARY | 2025-04-23 11:29 | XMS_ITS ---
Author Organization [facility] Address [address] [place], [place] [id number] Care Team Providers Care Greenkeeper Name Role Phone Kindra Corcoran Primary Care Provider [phone] Migration, Provider Unavailable Unavailable REASON FOR VISIT EMR[facility] Medications Medication SIG (Take, Route, Frequency, Duration) Notes Start Date End Date Status predniSONE 20 MG Tablet Oral 10/01/2024 Active Losartan Potassium 100 MG Tablet Oral 10/01/2024 Active hydroCHLOROthiazide 25 MG Tablet Oral 10/01/2024 Active Semaglutide *Pick strength-form from [email or web address] for eRX* 10/01/2024 Active Social History Social History Additional Details Category Social Info Options Details Migrated Social History Migrated Social History Tobacco Years: Former smoker 10/01/2024 [facility]counters Encounter [facility] Date [facility] [address], [place] [id number] [facility] Prov ider Migration Plan Of Treatment No Information Progress Notes * Keara ADAMSOB:[birth year] (65 yo F)Acc No.[id number]:02/22/2025 Patient: Brannon BROWNine :1960 A ge:65 Y S ex:Female Phone: Address:[facility] [address] [facility], [place], [address] Subjective: * Chief Complaints: * E MR-Angel * Pony Edger History: M igrated GynHistory M igrated GYNHistory:: Abnormal Pap: Y Modified Date:10/01/2024,Age at First Child: 18 Modified Date:10/01/2024,Age at Menarche: 13 Modified Date:10/01/2024,Colposcopy: 09/05/2017 Modified Date:10/01/2024,Current Control Method: Menopause Modified Date:10/01/2024,HPV Vaccine: N Modified Date:10/01/2024,Hormone Replacement Therapy: N Modified Date:10/01/2024,If Post Menopausal, Age at Menopause: 53 Modified Date:10/01/2024,STIs/STDs: N Modified Date:10/01/2024,Sexual Problems: N Modified Date:10/01/2024,Sexually Active: Y Modified Date:10/01/2024 . * Surgical History: Appendectomy Ectopic Laparoscopy Other Tonsillectomy * Family History: M other: Osteoporosis . * Social History: M igrated Social History: M igrated Social History: Tobacco Years: Former smoker 10/01/2024. * Medications: T akinghydroCHLOROthiazide 25 MG Tablet Oral Losartan Potassium 100 MG Tablet Oral predniSONE 20 MG Tablet Oral Semaglutide , Notes to Pharmacist: *[facility]*Taking hydroCHLOROthiazide 25 MG Tablet Oral Taking Losartan Potassium 100 MG Tablet Oral Taking predniSONE 20 MG Tablet Oral Taking Semaglutide , Notes to Pharmacist: *Pick strength-form from [employer] for eRX* * * Date:
--- OUTSIDE RECORDS SUMMARY | 2025-04-23 11:29 | XMS_ITS | Referral Summary ---
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 Gender Identity Not on file Sexual Orientation [...] 05/30/2022 12:25 PM CDT Plan of Treatment Not on file Medical Devices Implanted Type Area Computer Systems Auditor Device Identifier Shelf Expiration Date Model / Serial / Lot [employer] 3 Hole Anatomic Graft Window Radius Right Wrist Volar Narrow [id number] - Sn/A - [id number] Implanted:Qty: 1 on 05/30/2022 by Isaías Perez MD at [facility] Right: Wrist [employer] [id number] / N/A / DRP 10 [employer] Screw Kreulock Compression Titanium 2.4x20mm [id number] - Sn/A - [id number] Implanted:Qty: 3 on 05/30/2022 by Isaías Perez MD at [facility] Right: Wrist [employer] [id number] 0 / N/A / [id number], [id number] [employer] Screw Kreulock Compression Titanium 2.4x18mm [id number]-[id number] - Sn/A - [id number] Implanted:Qty: 3 on 05/30/2022 by Isaías Perez MD at [facility] Right: Wrist [employer] [id number] 8 / N/A / [id number] [employer] Screw Kreulock Compression Titanium 3.5x14mm [id number] - Sn/A - [id number] Implanted:Qty: 1 on 05/30/2022 by Isaías Perez MD at [facility] Right: Wrist [employer] [id number] / N/A / [id number] [employer] 3.5mm 10mm Low Profile Lock Screw Bone Titanium Ar-8935l-10 - Sn/A - [id number] Implanted:Qty: 1 on 05/30/2022 by Isaías Perez MD at [facility] Right: Wrist [employer] AR-8935L-10 / N/A / [id number] [employer] 2.4mm 18mm Variable Angle Lock Smooth Radius Cortical Distal [id number] - Sn/A - [id number] Implanted:Qty: 1 on 05/30/2022 by Isaías Perez MD at [facility] Right: Wrist [employer] [id number] 8 / N/A / [id number] Explanted Type Area Computer Systems Auditor Device Identifier Shelf Expiration Date Model / Serial / Lot [employer] Screw Kreulock Compression Titanium 2.4x26mm [id number] - Sn/A - [id number] Explanted:Qty: 1 on 05/30/2022 at [facility] Right: Wrist [employer] [id number]- 26 / N/A / [id number] Insurance [facility] CHOICE PLUS [facility] H[facility]/PPO Address: [address] [address] [place] [address] [facility] CHOICE PLUS [facility] H[facility]/PPO Address: [address] [place] [address] [facility] CHOICE PLUS [facility] H[facility]/PPO Address: [address] [address] [place] [address] Care Teams Alterations Expert Relationship Specialty Start Date End Date Ignacio Ospina MD PCP - General 05/19/22
--- OUTSIDE RECORDS SUMMARY | 2025-04-23 11:29 | XMS_ITS | Patient Health Record ---
Author Organization [facility] Address [address], [place] [id number] Care Team Providers [facility] [employer] Name Role Phone Nilo Kindra Primary Care Provider Migration, Provider Unavailable Unavailable Nelly Aranda Unavailable [phone] Results Component Value Reference Range Notes BIOPSY, TISSUE Reviewed date:10/21/2024 12:00:00 AM Interpretation: Performing Lab: Notes/Report: PAP, IG + HPV MRNA E6/E7 + R EFLEX HPV (16+18+45) Reviewed date:10/01/2024 12:00:00 AM Interpretation: Performing Lab: Notes/Report: HPV MRNA E6/E7 Detected UNKNOWN Reviewed date:10/21/2024 12:00:00 AM Interpretation: Performing Lab: Notes/Report: Reason For Referral No Information Medications Medication SIG (Take, Route, Frequency, Duration) Notes Start Date End Date Status predniSONE 20 MG Tablet Oral 10/01/2024 Active Losartan Potassium 100 MG Tablet Oral 10/01/2024 Active hydroCHLOROthiazide 25 MG Tablet Oral 10/01/2024 Active Semaglutide *Pick strength-form from [employer] for eRX* 10/01/2024 Active Social History Social History Additional Details Category Social Info Options Details Migrated Social History Migrated Social History Tobacco Years: Former smoker 10/01/2024 Problems Problem Type SNOMED Code ICD Code Onset Dates Problem Status W/U Status Risk Notes Problem Obesity (144373136) Obesity, unspecified (E66.9) Active confirmed Problem Dysplasia of cervix uteri (30070763) Dysplasia of cervix uteri, unspecified (N87.9) Active confirmed Problem Unspecified menopausal and perimenopausal disorder (N95.9) Active confirmed Problem Cervicovaginal cytology: High grade squamous intraepithelial lesion or carcinoma (261444500) High grade squamous intraepithelial lesion on cytologic smear of cervix (HGSIL) (R87.613) Active confirmed Problem Human papilloma virus deoxyribonucleic acid test positive, high risk on vaginal specimen (990804481312620) Cervical high risk human papillomavirus (HPV) DNA test positive (R87.810) Active confirmed Problem Gynecological examination abnormal (859567330347675) Encounter for gynecological examination (general) (routine) with abnormal findings (Z01.411) Active confirmed Problem Body mass index 30+ - obesity (014538357) Body mass index (BMI) 30.0-30.9, adult (Z68.30) Active confirmed Vital Signs Height-cm 160.02 cm 10/20/2024 Blood pressure diastolic 82 mm Hg 10/16/2024 Weight-kg 79.02 kg 10/20/2024 Height 63.00 in 10/20/2024 Blood pressure systolic 130 mm Hg 10/16/2024 Weight 174.20 lbs 10/20/2024 BMI 30.9 kg/m2 10/20/2024 Encounters Encounter Location Date Provider Diagnosis [facility] [id number] [place] [address] 10/01/2024 Nelyl Aranda Unspecified menopaus al and perimenopausal disorder N95.9 ; Cervical high risk human papillomavirus (HPV) DNA test positive R87.810 and Encounter for gynecological examination (general) (routine) with abnormal findings Z01.411 [facility] [address] [place] [address] 10/16/2024 Kindra Nilo High grade squamous intraepithelial lesion on cytologic smear of cervix (HGSIL) R87.613 [facility] [address] [place] [address] 10/20/2024 Nelly Aranda Obesity, unspecified E66.9 and Body mass index (BMI) 30.0-30.9, adult Z68.30 [facility] [address] [facility] [address] 10/30/2024 Kindra Nilo Dysplasia of cervix uteri, unspecified N87.9 and High grade squamous intraepithelial lesion on cytologic smear of cervix (HGSIL) R87.613 [facility] [address] [address] 09/30/2024 Provider Migration [facility] [address] [facility] [address] [place] [address] 10/20/2024 Provider Migration [facility] [address] [place], [place] [id number] 02/21/2025 Provider Migration [facility] [address], [place] [id number] 02/22/2025 Provider Migration Assessments Encounter Date Diagnosis (ICD Code) Assessment Notes Treatment Notes Treatment Clinical Notes Section Notes 10/01/2024 Unspecified menopausal and perimenopausal disorder (ICD-10 - N95.9) 10/01/2024 Cervical high risk human papillomavirus (HPV) DNA test positive (ICD-10 - R87.810) 10/01/2024 Encounter for gynecological examination (general) (routine) with abnormal findings (ICD-10 - Z01.411) 10/16/2024 High grade squamous intraepithelial lesion on cytologic smear of cervix (HGSIL) (ICD-10 - R87.613) 10/20/2024 Obesity, unspecified (ICD-10 - E66.9) 10/20/2024 Body mass index (BMI) 30.0-30.9, adult (ICD-10 - Z68.30) 10/30/2024 Dysplasia of cervix uteri, unspecified (ICD-10 - N87.9) 10/30/2024 High grade squamous intraepithelial lesion on cytologic smear of cervix (HGSIL) (ICD-10 - R87.613) Plan Of Treatment No Information Insurance Providers Payer Name Payer Address Payer Phone Subscriber Number Group Number Insured Name Patient Relationship to Insured Coverage Start Date Coverage End Date [facility] [employer] [address] [place] [phone] [id number] Kelsie Adams Self - patient is the insured Medical (General) History Surgical History Surgery Date(Month/Year) Appendectomy Ectopic Laparoscopy Other Tonsillectomy
== END 2025-04-23 11:08 | disposition home or self-care (01) ==
PROVIDERS: PCP Family Medicine; Visit Provider Family Medicine
DX: R26.89 Other abnormalities of gait and mobility (principal); I10 Essential (primary) hypertension; E66.9 Obesity, unspecified; Z87.891 Personal history of nicotine dependence; Z82.49 Family history of ischemic heart disease and other diseases of the circulatory system
CPT/HCPCS: 93880

== ENCOUNTER 2025-05-25 09:34 | Outpatient (CLI) | payer OTHER, SELFPAY ==
[2025-05-25 18:29] LABS: Basophils Percent Auto 0.7 % (0.2-1.2); Eosinophils Absolute Auto 0.2 K/mm3 (0-0.3); Eosinophils Percent Auto 3.3 % (0-4.4); Hematocrit 41.9 % (37.0-47.0); Hemoglobin 13.6 g/dL (12.0-15.0); Immature Granulocyte Absolute 0.02 K/mm3 (0.00-0.031); Immature Granulocyte Percent A 0.4 % (0-0.5); Lymphocytes Absolute Auto 1.88 K/mm3 (0.9-3.2); Lymphocytes Percent Auto 40.9 % (18.3-44.2); Mean Corpuscular HGB Conc 32.5 g/dl (32-36); Mean Corpuscular Hemoglobin 29.4 pg (26-34); Mean Corpuscular Volume 90.5 fl (80-100); Mean Platelet Volume 9.4 fl (7.4-10.4); Monocytes Absolute Auto 0.4 K/mm3 (0.1-0.6); Monocytes Percent Auto 8.7 % (2.6-8.5); Neutrophils Absolute Auto 2.1 K/mm3 (1.3-6.7); Platelet Count Result 270 k/mm3 (150-375); Red Blood Count 4.63 M/mm3 (4.2-5.4); Red Cell Distribution Width 13.4 % (11.5-14.5); White Blood Count 4.6 K/mm3 (4.5-10.0)
[2025-05-25 18:55] LABS: Alanine Aminotransferase 28 U/L (6-35); Albumin Level 4.4 g/dL (3.5-5.1); Alkaline Phosphatase 69 U/L (38-126); Anion Gap 9 mmol/L (4-12); Aspartate Amino Transferase 74 U/L (14-36); Bilirubin,Total 0.6 mg/dL (0.2-1.3); Blood Urea Nitrogen 25 mg/dL (7-17); Calcium 9.6 mg/dL (8.4-10.2); Carbon Dioxide 30 mmol/L (22-30); Chloride 99 mmol/L (98-107); Cholesterol 204 mg/dL (0-200); Estimated Glomerular Filt Rate 51; Glucose 90 mg/dL (65-110); HDL Direct 37 mg/dL; Potassium 3.8 mmol/L (3.4-5.0); Sodium 138 mmol/L (137-145); Total Protein 7.8 g/dL (6.3-8.2); Triglycerides 126 mg/dL (<150)
[2025-05-25 19:10] LABS: LDL Cholesterol Direct 104 mg/dL
[2025-05-25 19:11] LABS: Vitamin D 25 Hydroxy 99.4 ng/mL
[2025-05-25 19:44] LABS: Vitamin B12 > 1000.0 pg/mL (239-931)
== END 2025-05-25 09:35 | disposition home or self-care (01) ==
LOC: ANHBWCLAB 09:35
PROVIDERS: PCP Family Medicine; Visit Provider Family Medicine
DX: Z00.00 Encounter for general adult medical examination without abnormal findings (principal); I10 Essential (primary) hypertension; R73.09 Other abnormal glucose; R73.03 Prediabetes; R73.9 Hyperglycemia, unspecified; R74.8 Abnormal levels of other serum enzymes; E66.9 Obesity, unspecified
CPT/HCPCS: 36415; 80053; 80061; 82172; 82306; 82607; 85025